=== PATIENT | male | born 1995 | race Caucasian/White ===

== ENCOUNTER 2018-04-23 17:47 | Emergency (ER) | payer SELFPAY ==
[~2018-04-23] VITALS: Ht 180.3 cm; Wt 86.4 kg
[2018-04-23 17:51] VITALS: Ht 180.3 cm; Wt 86.4 kg
[2018-04-23 20:21] LABS: BASOPHILS 0.2 % (0-2); EOSINOPHILS 0.6 % (0-7); HEMATOCRIT 47.4 % (42.0-54.0); HEMOGLOBIN 16.9 g/dL (13.5-17.5); IMMATURE GRANULOCYTES 0.2 % (0-5); LYMPHOCYTES 7.8 % (15-50); MCH 31.2 pg (26.0-34.0); MCHC 35.7 g/dL (31.0-37.0); MCV 87.5 fL (80.0-100.0); MEAN PLATELET VOLUME 9.2 fL (7.4-10.4); MONOCYTES 8.5 % (2-11); NEUTROPHILS 82.7 % (40-80); RBC 5.42 10x6/uL (4.20-6.10); RDW 12.3 % (11.5-14.5); WBC 8.1 10x3/uL (4.8-10.8)
[2018-04-23 20:22] LABS: PLATELET COUNT 187 10x3/uL (130-400)
[2018-04-23 20:25] LABS: APPEARANCE CLOUDY (CLEAR); BILIRUBIN NEGATIVE (NEGATIVE); COLOR DY (YELLOW); GLUCOSE NEGATIVE (NEGATIVE); KETONE NEGATIVE (NEGATIVE); NITRITE NEGATIVE (NEGATIVE); PROTEIN 2+ mg/dL (NEGATIVE); SPECIFIC GRAVITY 1.015 (1.005-1.020); UROBILINOGEN NORMAL (NORMAL)
[2018-04-23 20:26] LABS: AMORPHOUS SEDIMENT <1+ /lpf (NONE SEEN); BACTERIA MANY /hpf (NONE SEEN); EPITHELIAL CELLS 0-5 /hpf (0-5); MUCUS <1+ /lpf (NONE SEEN)
[2018-04-23 20:37] LABS: ALBUMIN 3.2 g/dL (3.4-5.0); ANION GAP 14.4 mmol/L (8-16); BILIRUBIN - TOTAL 0.48 mg/dL (0.2-1.3); CALCIUM 8.7 mg/dL (8.5-10.1); CARBON DIOXIDE 27.6 mmol/L (21.0-32.0); CREATININE - SERUM 1.7 mg/dL (0.6-1.3)
[2018-04-23] MEDS ORDERED: KENALOG 0.1% OI80 GM TOPICAL (21:24)
[2018-04-23] MEDS ORDERED: TAMIFLU75 MG PO (21:24)
[2018-04-23] MEDS ORDERED: ATARAX 25 MG TA25 MG PO (21:24)
[2018-04-23 21:45] VITALS: BP 132/79
== END 2018-04-23 21:45 | disposition home or self-care (01) ==
LOC: D.ER 17:47
PROVIDERS: Family Medicine
DX: R50.9 Fever, unspecified (principal); N18.9 Chronic kidney disease, unspecified; R82.90 Unspecified abnormal findings in urine; J11.1 Influenza due to unidentified influenza virus with other respiratory manifestations; L42 Pityriasis rosea; N39.0 Urinary tract infection, site not specified; F17.200 Nicotine dependence, unspecified, uncomplicated